=== PATIENT | male | born 1965 | race Caucasian/White ===

== ENCOUNTER 2017-10-15 16:38 | Emergency (ER) | payer OTHER ==
[2017-10-15] MEDS ORDERED: Sodium Chloride 0.9% 1,000 ML IV ONE (16:49)
--- NOTE | 2017-10-15 16:50 | EDM.PDOC ---
ED HPI GENERAL MEDICAL PROBLEM - General Chief Complaint: Skin Complaint Stated Complaint: PT HURT LT RIGHT BIG TOE Time Seen by Provider: 10/15/17 16:45 Source of Information: Reports: Patient History Limitations: Reports: No Limitations - History of Present Illness INITIAL COMMENTS - FREE TEXT/NARRATIVE: HISTORY AND PHYSICAL: History of present illness: Patient is a 52-year-old male who presents to the emergency room with a infected left great toe. He states approximately 4 days ago he noted some area of redness, which has progressively gotten worse. Today there is minimal amount of yellow/green drainage noted on his sock and a foul odor coming from the toe. He does have a history of diabetes with. He states he's been wearing rubber boots which have been wet inside. He reports that when he gets home he takes his boots off, dries his feet and keeps them open to air and elevated. C/o chills and sweats x 3 days. Review of systems: As per history of present illness and below otherwise all systems reviewed and negative. Past medical history: As per history of present illness and as reviewed below otherwise noncontributory. Surgical history: As per history of present illness and as reviewed below otherwise noncontributory. Social history: No reported history of drug or alcohol abuse. Family history: As per history of present illness and as reviewed below otherwise noncontributory. Physical exam: General: Well-developed and well-nourished 52-year-old male. Alert and oriented. Nontoxic appearing and in no acute distress. HEENT: Atraumatic, normocephalic, pupils equal and reactive bilaterally, negative for conjunctival pallor or scleral icterus, mucous membranes moist, throat clear, neck supple, nontender, trachea midline. No drooling or trismus noted. No meningeal signs Lungs: Clear to auscultation, breath sounds equal bilaterally, chest nontender. Heart: S1S2, regular rate and rhythm without overt murmur Abdomen: Soft, nondistended, nontender. Negative for masses or hepatosplenomegaly. Negative for costovertebral tenderness. Pelvis: Stable nontender. Genitourinary: Deferred. Rectal: Deferred. Skin: Left great toe has a large area of macerated skin localized area (approx 2.5 cm diameter) area of nacrotic appearing tissue towards the outer portion of the toe. Yellow/green drainage noted, errythema at the base of toe ( circumferential). Foul odor noted from the wound. Otherwise skin is intact, warm , dry. No lesions or rashes noted. Extremities: Atraumatic, negative for cords or calf pain. Neurovascular unremarkable. Neuro: Awake, alert, oriented. Cranial nerves II through XII unremarkable. Cerebellum unremarkable. Motor and sensory unremarkable throughout. Exam nonfocal. Notes: Temperature is 102.4, Current blood sugar 196. Labs, x-ray and medications will be given. Dr Wlaker was involved in this case. Feel it is in the patients best interest to be transfered to [place] for further management and possible debridment. He will likely need multiple specialties involved in his care. Patient is agreeable to transfer. 1715: Dr Young (ER ) at [facility] in [place] is agreeable to taking this patient. Diagnostics: CBC, CMP, lactic acid, blood culture 2, x-ray Therapeutics: IV fluid, Tylenol, and Vancomycin Impression: Diabetic Foot Ulcer with Cellulitis Plan: Transferred to [facility] via ground EMS Definitive disposition and diagnosis as appropriate pending reevaluation and review of above. Duration: Day(s): left great toe Pain Score (Numeric/FACES): 6 - Related Data Allergies Allergy/AdvReac Type Severity Reaction Status Date / Time No Known Allergies Allergy Verified 10/15/17 16:45 Home Meds: Home Meds Aspirin [Low Dose Aspirin EC] 81 mg PO DAILY 10/15/17 [History] Fish Oil/[place]-3 Fatty Acids [Fish Oil] 1,000 mg PO DAILY 10/15/17 [History] Lisinopril [Zestril] 5 mg PO DAILY 10/15/17 [History] Multivitamin [Multi-Vitamin Daily] 1 each PO DAILY 10/15/17 [History] Simvastatin [Zocor] 1 tab PO DAILY 10/15/17 [History] metFORMIN HCl [Metformin HCl] 500 mg PO DAILY 10/15/17 [History] ED ROS GENERAL - Review of Systems Review Of Systems: ROS reveals no pertinent complaints other than HPI. ED EXAM, SKIN/RASH Exam: See Below (See dictation) Course - Vital Signs Last Recorded V/S: Last Vital Signs Temp 102.9 F H 10/15/17 16:48 Pulse 107 H 10/15/17 16:48 Resp 20 10/15/17 16:48 BP 133/91 H 10/15/17 16:48 Pulse Ox 98 10/15/17 16:48 - Orders/Labs/Meds Orders: Active Orders 24 hr Category Date Time Status Toes Great Toe Lt TA [CR] Stat Exams 10/15/17 16:50 Taken CULTURE BLOOD [BC] Stat Lab 10/15/17 16:53 Received CULTURE BLOOD [BC] Stat Lab 10/15/17 16:58 Received CULTURE WOUND [RM] Stat Lab 10/15/17 17:02 Received Sodium Chloride 0.9% [Normal Saline] 1,000 ml Med 10/15/17 16:49 Active IV STAT Vancomycin [Vancocin] 1 gm Med 10/15/17 17:00 Active Sodium Chloride 0.9% [Normal Saline] 250 ml IV ONETIME Blood Culture x2 Reflex Set [OM.PC] Stat Oth 10/15/17 16:49 Ordered Medication Orders Sodium Chloride (Normal Saline) 1,000 mls @ 999 mls/hr IV STAT ONE Stop: 10/15/17 17:49 Last Admin: 10/15/17 17:31 Dose: 999 mls/hr Vancomycin HCl 1 gm/ Sodium (Chloride) 250 mls @ 250 mls/hr IV ONETIME ONE Stop: 10/15/17 17:59 Last Admin: 10/15/17 17:38 Dose: 250 mls/hr Labs: Laboratory Tests 10/15/17 10/15/17 10/15/17 Range/Units 16:47 16:53 16:53 WBC 8.88 (4.0-11.0) K/uL RBC 4.42 L (4.50-5.90) M/uL Hgb 13.9 (13.0-17.0) g/dL Hct 38.3 (38.0-50.0) % MCV 86.7 (80.0-98.0) fL MCH 31.4 (27.0-32.0) pg MCHC 36.3 (31.0-37.0) g/dL RDW Std Deviation 40.2 (28.0-62.0) fl RDW Coeff of Sapna 13 (11.0-15.0) % Plt Count 185 (150-400) K/uL MPV 8.90 (7.40-12.00) fL Neut % (Auto) 76.0 (48.0-80.0) % Lymph % (Auto) 13.7 L (16.0-40.0) % [place] % (Auto) 9.5 (0.0-15.0) % Eos % (Auto) 0.6 (0.0-7.0) % Baso % (Auto) 0.2 (0.0-1.5) % Neut # (Auto) 6.8 H (1.4-5.7) K/uL Lymph # (Auto) 1.2 (0.6-2.4) K/uL [place] # (Auto) 0.8 (0.0-0.8) K/uL Eos # (Auto) 0.1 (0.0-0.7) K/uL Baso # (Auto) 0.0 (0.0-0.1) K/uL Nucleated RBC % 0.0 /100WBC Nucleated RBCs # 0 K/uL Lactate (0.20-2.00) mmol/L Sodium 132 L (136-148) mmol/L Potassium 4.2 (3.5-5.1) mmol/L Chloride 98 (98-107) mmol/L Carbon Dioxide 23.0 (21.0-32.0) mmol/L BUN 11 (7.0-18.0) mg/dL Creatinine 1.1 (0.8-1.3) mg/dL Est Cr Clr Drug Dosing 87.20 mL/min Estimated GFR (MDRD) > 60.0 ml/min Glucose 218 H (74-106) mg/dL POC Glucose 196 H (60-110) mg/dL Calcium 9.1 (8.5-10.1) mg/dL Total Bilirubin 0.6 (0.2-1.0) mg/dL AST 23 (15-37) IU/L ALT 37 (14-63) IU/L Alkaline Phosphatase 125 H (46-116) U/L Total Protein 8.3 H (6.4-8.2) g/dL Albumin 3.5 (3.4-5.0) g/dL Globulin 4.8 H (2.0-3.5) g/dL Albumin/Globulin Ratio 0.7 L (1.3-2.8) 10/15/17 Range/Units 16:58 WBC (4.0-11.0) K/uL RBC (4.50-5.90) M/uL Hgb (13.0-17.0) g/dL Hct (38.0-50.0) % MCV (80.0-98.0) fL MCH (27.0-32.0) pg MCHC (31.0-37.0) g/dL RDW Std Deviation (28.0-62.0) fl RDW Coeff of Sapna (11.0-15.0) % Plt Count (150-400) K/uL MPV (7.40-12.00) fL Neut % (Auto) (48.0-80.0) % Lymph % (Auto) (16.0-40.0) % [place] % (Auto) (0.0-15.0) % Eos % (Auto) (0.0-7.0) % Baso % (Auto) (0.0-1.5) % Neut # (Auto) (1.4-5.7) K/uL Lymph # (Auto) (0.6-2.4) K/uL [place] # (Auto) (0.0-0.8) K/uL Eos # (Auto) (0.0-0.7) K/uL Baso # (Auto) (0.0-0.1) K/uL Nucleated RBC % /100WBC Nucleated RBCs # K/uL Lactate 1.7 (0.20-2.00) mmol/L Sodium (136-148) mmol/L Potassium (3.5-5.1) mmol/L Chloride (98-107) mmol/L Carbon Dioxide (21.0-32.0) mmol/L BUN (7.0-18.0) mg/dL Creatinine (0.8-1.3) mg/dL Est Cr Clr Drug Dosing mL/min Estimated GFR (MDRD) ml/min Glucose (74-106) mg/dL POC Glucose (60-110) mg/dL Calcium (8.5-10.1) mg/dL Total Bilirubin (0.2-1.0) mg/dL AST (15-37) IU/L ALT (14-63) IU/L Alkaline Phosphatase (46-116) U/L Total Protein (6.4-8.2) g/dL Albumin (3.4-5.0) g/dL Globulin (2.0-3.5) g/dL Albumin/Globulin Ratio (1.3-2.8) Meds: Medications Generic Name Dose Route Start Last Admin Trade Name Freq PRN Reason Stop Dose Admin Sodium Chloride 1,000 mls @ 999 mls/hr 10/15/17 16:49 10/15/17 17:46 Normal Saline IV 10/15/17 17:49 200 mls/hr STAT ONE Infusion Vancomycin HCl 1 gm/ Sodium 250 mls @ 250 mls/hr 10/15/17 17:00 10/15/17 17: 38 Chloride IV 10/15/17 17:59 250 mls/hr ONETIME ONE Administration Discontinued Medications Generic Name Dose Route Start Last Admin Trade Name Freq PRN Reason Stop Dose Admin Ketorolac Tromethamine 30 mg 10/15/17 17:00 10/15/17 17:35 Toradol IVPUSH 10/15/17 17:01 30 mg ONETIME ONE Administration Ondansetron HCl 4 mg 10/15/17 17:00 10/15/17 17:32 Zofran IVPUSH 10/15/17 17:01 4 mg ONETIME ONE Administration Departure - Departure Time of Disposition: 17:47 Disposition: Home, Self-Care 01 Clinical Impression: Diabetic ulcer of toe Qualifiers: Diabetes mellitus type: type 2 Laterality: left Non-pressure ulcer stage: unspecified non-pressure ulcer stage Qualified Code(s): E11.621 - Type 2 diabetes mellitus with foot ulcer; L97.529 - Non-pressure chronic ulcer of other part of left foot with unspecified severity Cellulitis Qualifiers: Site of cellulitis: extremity Site of cellulitis of extremity: toe Laterality: left Qualified Code(s): L03.032 - Cellulitis of left toe - Discharge Information Referrals: PCP,None [Primary Care Provider] - Forms: ED Department Discharge - My Orders Last 24 Hours: My Active Orders 10/15/17 16:49 Sodium Chloride 0.9% [Normal Saline] 1,000 ml IV STAT Blood Culture x2 Reflex Set [OM.PC] Stat 10/15/17 16:50 Toes Great Toe Lt TA [CR] Stat 10/15/17 16:53 CULTURE BLOOD [BC] Stat 10/15/17 16:58 CULTURE BLOOD [BC] Stat 10/15/17 17:00 Vancomycin [Vancocin] 1 gm Sodium Chloride 0.9% [Normal Saline] 250 ml IV ONETIME 10/15/17 17:02 CULTURE WOUND [RM] Stat - Assessment/Plan Last 24 Hours: My Active Orders 10/15/17 16:49 Sodium Chloride 0.9% [Normal Saline] 1,000 ml IV STAT Blood Culture x2 Reflex Set [OM.PC] Stat 10/15/17 16:50 Toes Great Toe Lt TA [CR] Stat 10/15/17 16:53 CULTURE BLOOD [BC] Stat 10/15/17 16:58 CULTURE BLOOD [BC] Stat 10/15/17 17:00 Vancomycin [Vancocin] 1 gm Sodium Chloride 0.9% [Normal Saline] 250 ml IV ONETIME 10/15/17 17:02 CULTURE WOUND [RM] Stat
[2017-10-15] MEDS ORDERED: Ondansetron 4 MG/2 ML SDV IVPUSH ONE (17:00)
[2017-10-15] MEDS ORDERED: Ketorolac 30 MG/ML SDV IVPUSH ONE (17:00)
[2017-10-15 17:37] LABS: CHLORIDE,CL 98 mmol/L (98-107); SODIUM,NA 132 mmol/L (136-148)
--- NOTE | 2017-10-16 13:48 | CR ---
EXAM DATE: 10/15/17 PATIENT'S AGE: 52 Patient: KRYSTYNA HARE Facility: [place], [place] Site . Site : [id number] Study: XRay Extremity Left 1st toe [id number]/15/2018 5:35:09 PM Ordering Physician: Doctor Rainey Final Report: Great toe infection since Monday 3 views of the left toe Findings: There is soft tissue defect. Soft tissue gas and soft tissue swelling adjacent to the 1st distal phalanx. There is normal alignment. No underlying osseous abnormalities. No Erosive change or bony destructive change. Dictated by Radha Espitia MD @ Oct 15 2017 5:49PM (Electronic Signature) Report Signed by Proxy. LILLY
== END 2017-10-15 18:15 ==
LOC: MW.ED 16:38
DX: E11.621 Type 2 diabetes mellitus with foot ulcer (principal); L97.529 Non-pressure chronic ulcer of other part of left foot with unspecified severity; L03.032 Cellulitis of left toe; Z79.82 Long term (current) use of aspirin; Z79.899 Other long term (current) drug therapy; Z79.84 Long term (current) use of oral hypoglycemic drugs
CPT/HCPCS: 36415; 73660; 80053; 82962; 83605; 85025; 87040; 87070; 96365; 96375; 99285; J1885; J2405; J3370; J7040; J7050; 87186; 99284

== ENCOUNTER 2020-11-30 03:45 | Emergency (ER) | payer SELFPAY ==
[2020-11-30] MEDS ORDERED: Ketorolac 15 MG/ML SDV IVPUSH ONE (04:01)
[2020-11-30] MEDS ORDERED: Sodium Chloride 0.9% 1,000 ML IV ONE (04:01)
--- NOTE | 2020-11-30 04:04 | EDM.PDOC ---
ED HPI GENERAL MEDICAL PROBLEM - General Chief Complaint: Genitourinary Problem Stated Complaint: BACK PAIN Time Seen by Provider: 11/30/20 04:02 Source of Information: Reports: Patient History Limitations: Reports: No Limitations - History of Present Illness INITIAL COMMENTS - FREE TEXT/NARRATIVE: Patient is a 55-year-old male presents today for left-sided flank pain. Patient 's pain started about 3 or 4 hours ago has been intense moved down to his groin. Patient states that he has been drinking fluids but not being urinate. Patient denies any nausea vomiting fever chills. Patient has pain similar to before the passing a kidney stone. - Related Data Allergies Allergy/AdvReac Type Severity Reaction Status Date / Time No Known Allergies Allergy Verified 11/30/20 04:03 Home Meds: Home Meds Aspirin [Low Dose Aspirin EC] 81 mg PO DAILY 10/15/17 [History] Fish Oil/[place]-3 Fatty Acids [Fish Oil] 1,000 mg PO DAILY 10/15/17 [History] Multivitamin [Multi-Vitamin Daily] 1 each PO DAILY 10/15/17 [History] Simvastatin [Zocor] 1 tab PO DAILY 10/15/17 [History] lisinopriL [Zestril] 5 mg PO DAILY 10/15/17 [History] metFORMIN HCl [Metformin HCl] 500 mg PO DAILY 10/15/17 [History] Past Medical History Cardiovascular History: Reports: Hypertension Musculoskeletal History: Reports: Gout Endocrine/Metabolic History: Reports: Diabetes, Type II - Infectious Disease History Infectious Disease History: Reports: Chicken Pox - Past Surgical History Cardiovascular Surgical History: Reports: Other (See Below) Other Cardiovascular Surgeries/Procedures: heart cath at 31 Social & Family History - Family History Family Medical History: No Pertinent Family History - Caffeine Use Caffeine Use: Reports: Soda ED ROS GENERAL - Review of Systems Review Of Systems: See Below Constitutional: Reports: No Symptoms HEENT: Reports: No Symptoms Respiratory: Reports: No Symptoms Cardiovascular: Reports: No Symptoms Endocrine: Reports: No Symptoms GI/Abdominal: Reports: Other : Reports: No Symptoms Musculoskeletal: Reports: No Symptoms Skin: Reports: No Symptoms Neurological: Reports: No Symptoms Psychiatric: Reports: No Symptoms Hematologic/Lymphatic: Reports: No Symptoms Immunologic: Reports: No Symptoms ED EXAM, RENAL/ - Physical Exam Exam: See Below Exam Limited By: No Limitations General Appearance: Alert, WD/WN, No Apparent Distress Respiratory/Chest: No Respiratory Distress, Lungs Clear Cardiovascular: Normal Peripheral Pulses, Regular Rate, Rhythm GI/Abdominal: Normal Bowel Sounds, Soft, Non-Tender Back Exam: CVA Tenderness (L) Neurological: Alert, Oriented Course - Vital Signs Last Recorded V/S: Last Vital Signs Temp 97.3 F 11/30/20 06:17 Pulse 73 11/30/20 06:17 Resp 15 11/30/20 06:17 BP 124/80 11/30/20 06:17 Pulse Ox 97 11/30/20 06:17 - Orders/Labs/Meds Orders: Active Orders 24 hr Category Date Time Status UA W/GHAZAL RFLX IF INDICATED [URIN] Stat Lab 11/30/20 06:20 Received Labs: Laboratory Tests 11/30/20 11/30/20 11/30/20 Range/Units 04:40 04:40 06:20 WBC 11.74 H (4.0-11.0) K/uL RBC 4.41 L (4.50-5.90) M/uL Hgb 14.3 (13.0-17.0) g/dL Hct 39.1 (38.0-50.0) % MCV 88.7 (80.0-98.0) fL MCH 32.4 H (27.0-32.0) pg MCHC 36.6 (31.0-37.0) g/dL RDW Std Deviation 42.1 (28.0-62.0) fl RDW Coeff of Sapna 13 (11.0-15.0) % Plt Count 150 (150-400) K/uL MPV 9.60 (7.40-12.00) fL Neut % (Auto) 82.8 H (48.0-80.0) % Lymph % (Auto) 12.5 L (16.0-40.0) % [place] % (Auto) 4.3 (0.0-15.0) % Eos % (Auto) 0.2 (0.0-7.0) % Baso % (Auto) 0.2 (0.0-1.5) % Neut # (Auto) 9.7 H (1.4-5.7) K/uL Lymph # (Auto) 1.5 (0.6-2.4) K/uL [place] # (Auto) 0.5 (0.0-0.8) K/uL Eos # (Auto) 0.0 (0.0-0.7) K/uL Baso # (Auto) 0.0 (0.0-0.1) K/uL Nucleated RBC % 0.0 /100WBC Nucleated RBCs # 0 K/uL Sodium 135 L (136-148) mmol/L Potassium 4.2 (3.5-5.1) mmol/L Chloride 101 (98-107) mmol/L Carbon Dioxide 21.4 (21.0-32.0) mmol/L BUN 17 (7.0-18.0) mg/dL Creatinine 1.4 H (0.8-1.3) mg/dL Est Cr Clr Drug Dosing TNP Estimated GFR (MDRD) 52.8 ml/min Glucose 311 H (74-106) mg/dL Calcium 8.8 (8.5-10.1) mg/dL Urine Color YELLOW Urine Appearance SLT CLOUDY Urine pH 6.0 (5.0-8.0) Ur Specific [place] 1.015 (1.001-1.035) Urine Protein NEGATIVE (NEGATIVE) mg/dL Urine Glucose (UA) >=1000 (NEGATIVE) mg/dL Urine Ketones 15 H (NEGATIVE) mg/dL Urine Occult Blood LARGE H (NEGATIVE) Urine Nitrite NEGATIVE (NEGATIVE) Urine Bilirubin NEGATIVE (NEGATIVE) Urine Urobilinogen 0.2 (<2.0) EU/dL Ur Leukocyte Esterase NEGATIVE (NEGATIVE) Meds: Medications Discontinued Medications Generic Name Dose Route Start Last Admin Trade Name Freq PRN Reason Stop Dose Admin Sodium Chloride 1,000 mls @ 999 mls/hr 11/30/20 04:01 11/30/20 04:36 Normal Saline IV 11/30/20 05:01 999 mls/hr .BOLUS ONE Administration Ketorolac Tromethamine 15 mg 11/30/20 04:01 11/30/20 04:36 Ketorolac 15 Mg/Ml Sdv IVPUSH 11/30/20 04:02 15 mg ONETIME ONE Administration Ondansetron HCl 4 mg 11/30/20 04:23 11/30/20 04:36 Ondansetron 4 Mg/2 Ml Sdv IVPUSH 11/30/20 04:24 4 mg ONETIME ONE Administration - Re-Assessments/Exams Free Text/Narrative Re-Assessment/Exam: 11/30/20 06:32 Pt pain is resolved. Patient CT shows some hydro but no obstructing stone. Stone likely passed. Departure - Departure Time of Disposition: 06:32 Disposition: Home, Self-Care 01 Condition: Good Clinical Impression: Kidney stone - Discharge Information *PRESCRIPTION DRUG MONITORING PROGRAM REVIEWED*: Not Applicable *COPY OF PRESCRIPTION DRUG MONITORING REPORT IN PATIENT ALLY: Not Applicable Instructions: Kidney Stones, [id number] Referrals: Trey Anderson MD [Primary Care Provider] - Forms: ED Department Discharge Care Plan Goals: The following information is given to patients seen in the emergency department who are being discharged to home. This information is to outline your options for follow-up care. We provide all patients seen in our emergency department with a follow-up referral. The need for follow-up, as well as the timing and circumstances, are variable depending upon the specifics of your emergency department visit. If you don't have a primary care physician on staff, we will provide you with a referral. We always advise you to contact your personal physician following an emergency department visit to inform them of the circumstance of the visit and for follow-up with them and/or the need for any referrals to a consulting specialist. The emergency department will also refer you to a specialist when appropriate. This referral assures that you have the opportunity for follow-up care with a specialist. All of these measure are taken in an effort to provide you with optimal care, which includes your follow-up. Under all circumstances we always encourage you to contact your private physician who remains a resource for coordinating your care. When calling for follow-up care, please make the office aware that this follow-up is from your recent emergency room visit. If for any reason you are refused follow-up, please contact the [facility] Emergency Department at and asked to speak to the emergency department charge nurse. Please follow up with your primary care physician. If you do not have a primary care physician, see below: [facility] [address] [place] [address] [facility] [address] [place] [address] [facility] [address] [place] [address] You were seen today for pain in the left side. You likely had a kidney stone that is passed. You CAT scan showed some dilation of the kidney likely from the stone but stone is not present. Please follow-up with urology number above you can call make an appointment. If you have any increased pain fever chills nausea vomiting please return to ED. Sepsis Event Note (ED) - Focused Exam Vital Signs: Vital Signs Temp Pulse Resp BP Pulse Ox 11/30/20 06:17 97.3 F 73 15 124/80 97 11/30/20 04:00 96.3 F L 68 24 H 161/82 H 100 - My Orders Last 24 Hours: My Active Orders 11/30/20 06:20 UA W/GHAZAL RFLX IF INDICATED [URIN] Stat - Assessment/Plan Last 24 Hours: My Active Orders 11/30/20 06:20 UA W/GHAZAL RFLX IF INDICATED [URIN] Stat Plan: Is a 55-year-old male who presents today for left-sided flank pain. Patient passes a kidney stone will obtain labs UA give IV fluids and CT abdomen pelvis.
[2020-11-30] MEDS ORDERED: Ondansetron 4 MG/2 ML SDV IVPUSH ONE (04:23)
[2020-11-30 04:54] LABS: BLOOD UREA NITROGEN,BUN 17 mg/dL (7.0-18.0); CARBON DIOXIDE,CO2 21.4 mmol/L (21.0-32.0); CHLORIDE,CL 101 mmol/L (98-107); GLUCOSE RANDOM 311 mg/dL (74-106); POTASSIUM,K 4.2 mmol/L (3.5-5.1); SODIUM,NA 135 mmol/L (136-148)
--- NOTE | 2020-11-30 06:31 | CT ---
INDICATION: Possible kidney stone. Left-sided back pain. COMPARISON: None available TECHNIQUE: CT examination of the abdomen and pelvis was performed without contrast enhancement using 2.5 mm thick axial sections from the lung bases through the pubic symphysis. Oral contrast was not administered. Please note that all CT scans at this facility use dose modulation, iterative reconstruction, and/or weight-based dosing when appropriate to reduce radiation dose to as low as reasonably achievable. FINDINGS: In the abdomen, the unenhanced liver, spleen, pancreas, and adrenals are normal in appearance. There is mild left hydronephrosis and proximal hydroureter extending to the mid L3 level, without any definite obstructing calculus or mass. The dilatation may be the residua from recent passage of a calculus. There is no sign of any renal or ureteral calculi on either side. There is no sign of hydronephrosis or hydroureter on the right. The gallbladder is normal in appearance. The abdominal aorta is normal in caliber with no sign of dilatation. There is no sign of retroperitoneal mass or adenopathy. The stomach, loops of small bowel, and colon in the abdomen are normal in appearance. In the pelvis, the appendix is normal in appearance with no sign of inflammatory process. There is moderate sigmoid diverticulosis without evidence of diverticulitis. The loops of small bowel and colon in the pelvis are otherwise normal in appearance. The prostate is mildly enlarged and is otherwise normal in appearance. The urinary bladder is normal in appearance. There is no sign of pelvic or inguinal mass or adenopathy. There is no sign of free air or free fluid in the abdomen or pelvis. The lung bases are clear. The osseous structures are normal in appearance for the patient`s age. IMPRESSION: CT of the abdomen shows mild left hydronephrosis and proximal left hydroureter extending to the mid L3 level, without obstructing calculus or mass. No sign of any renal or ureteral calculi on either side. CT of the pelvis shows moderate sigmoid diverticulosis with no sign of diverticulitis. Mild enlargement of the prostate. Please note that all CT scans at this facility use dose modulation, iterative reconstruction, and/or weight-based dosing when appropriate to reduce radiation dose to as low as reasonably achievable. Dictated by Dameon Kevin MD @ 11/30/2020 6:30:[address] Dameon Kevin @ Nov 30 2020 6:30AM
== END 2020-11-30 06:39 | disposition home or self-care (01) ==
LOC: MW.ED 03:45
DX: N13.2 Hydronephrosis with renal and ureteral calculous obstruction (principal); I10 Essential (primary) hypertension; M10.9 Gout, unspecified; E11.9 Type 2 diabetes mellitus without complications; Z79.84 Long term (current) use of oral hypoglycemic drugs; Z79.82 Long term (current) use of aspirin
CPT/HCPCS: 36415; 74176; 80048; 81001; 85025; 96374; 96375; 99284; J1885; J2405; J7030

== ENCOUNTER 2020-11-30 09:24 | Emergency (ER) | payer SELFPAY ==
--- NOTE | 2020-11-30 09:28 | EDM.PDOC ---
ED HPI GENERAL MEDICAL PROBLEM - General Stated Complaint: KIDNEY STONES Time Seen by Provider: 11/30/20 09:27 Source of Information: Reports: Patient History Limitations: Reports: No Limitations - History of Present Illness INITIAL COMMENTS - FREE TEXT/NARRATIVE: 55M PMHx renal stones presents with L flank pain. Of note patient was discharged from ER roughly 3 hours ago for similar complaints. At that time he was found to have hematuria and CT imaging of the abdomen and pelvis revealed left hydronephrosis/hydroureter without renal calculi identified. It was presumed that the patient has passed a kidney stone based on h/o renal stones and no stone identified on CT imaging. Patient notes that he was feeling better after he left the emergency department but roughly an hour prior to arrival he began to experience similar left-sided flank pain radiating to the left lower quadrant abdomen and groin. He notes this time he is having less difficulty with urination, has not noted overt hematuria. Has some nausea but no vomiting. Feels like prior episodes of kidney stone still. Left Flank Pain Score (Numeric/FACES): 7 - Related Data Allergies Allergy/AdvReac Type Severity Reaction Status Date / Time No Known Allergies Allergy Verified 11/30/20 09:35 Home Meds: Home Meds Aspirin [Low Dose Aspirin EC] 81 mg PO DAILY 10/15/17 [History] Fish Oil/[place]-3 Fatty Acids [Fish Oil] 1,000 mg PO DAILY 10/15/17 [History] Multivitamin [Multi-Vitamin Daily] 1 each PO DAILY 10/15/17 [History] Simvastatin [Zocor] 1 tab PO DAILY 10/15/17 [History] lisinopriL [Zestril] 5 mg PO DAILY 10/15/17 [History] metFORMIN HCl [Metformin HCl] 500 mg PO DAILY 10/15/17 [History] Past Medical History Cardiovascular History: Reports: CAD, High Cholesterol, Hypertension Other Genitourinary History: kidney stones Musculoskeletal History: Reports: Gout Endocrine/Metabolic History: Reports: Diabetes, Type II - Infectious Disease History Infectious Disease History: Reports: Chicken Pox - Past Surgical History Cardiovascular Surgical History: Reports: Other (See Below) Other Cardiovascular Surgeries/Procedures: heart cath at 31 Social & Family History - Family History Family Medical History: No Pertinent Family History - Caffeine Use Caffeine Use: Reports: Soda ED ROS GENERAL - Review of Systems Review Of Systems: Comprehensive ROS is negative, except as noted in HPI. ED EXAM, GENERAL - Physical Exam Exam: See Below Exam Limited By: No Limitations General Appearance: Alert, WD/WN, No Apparent Distress Throat/Mouth: Normal Voice, No Airway Compromise Head: Atraumatic, Normocephalic Neck: Normal Inspection Respiratory/Chest: No Respiratory Distress, Lungs Clear, Normal Breath Sounds, No Accessory Muscle Use Cardiovascular: Normal Peripheral Pulses, Regular Rate, Rhythm GI/Abdominal: Soft, Non-Tender Extremities: Normal Inspection Neurological: Alert, Normal Cognition, Normal Gait Psychiatric: Normal Affect, Normal Mood Skin Exam: Warm, Dry, Intact, Normal Color Course - Vital Signs Last Recorded V/S: Last Vital Signs Temp 97.7 F 11/30/20 12:17 Pulse 70 11/30/20 12:17 Resp 18 11/30/20 12:17 BP 117/64 11/30/20 12:17 Pulse Ox 97 11/30/20 12:17 - Orders/Labs/Meds Orders: Active Orders 24 hr Category Date Time Status Sodium Chloride 0.9% [Saline Flush] Med 11/30/20 09:38 Active 10 ml FLUSH ASDIRECTED PRN Sodium Chloride 0.9% [Saline Flush] Med 11/30/20 09:38 Active 2.5 ml FLUSH ASDIRECTED PRN Saline Lock Insert [OM.PC] Stat Oth 11/30/20 09:39 Ordered Medication Orders Sodium Chloride (Sodium Chloride 0.9% 10 Ml Syringe) 10 ml FLUSH ASDIRECTED PRN PRN Reason: Keep Vein Open Last Admin: 11/30/20 09:48 Dose: 10 ml Documented by: [id number] Sodium Chloride (Sodium Chloride 0.9% 2.5 Ml Syringe) 2.5 ml FLUSH ASDIRECTED PRN PRN Reason: Keep Vein Open Last Admin: 11/30/20 09:48 Dose: 2.5 ml Documented by: [id number] Labs: Laboratory Tests 11/30/20 11/30/20 11/30/20 Range/Units 09:45 09:45 09:45 WBC 11.16 H (4.0-11.0) K/uL RBC 4.31 L (4.50-5.90) M/uL Hgb 13.7 (13.0-17.0) g/dL Hct 38.5 (38.0-50.0) % MCV 89.3 (80.0-98.0) fL MCH 31.8 (27.0-32.0) pg MCHC 35.6 (31.0-37.0) g/dL RDW Std Deviation 43.2 (28.0-62.0) fl RDW Coeff of Sapna 13 (11.0-15.0) % Plt Count 152 (150-400) K/uL MPV 9.40 (7.40-12.00) fL Neut % (Auto) 85.8 H (48.0-80.0) % Lymph % (Auto) 9.6 L (16.0-40.0) % [place] % (Auto) 4.4 (0.0-15.0) % Eos % (Auto) 0.0 (0.0-7.0) % Baso % (Auto) 0.2 (0.0-1.5) % Neut # (Auto) 9.6 H (1.4-5.7) K/uL Lymph # (Auto) 1.1 (0.6-2.4) K/uL [place] # (Auto) 0.5 (0.0-0.8) K/uL Eos # (Auto) 0.0 (0.0-0.7) K/uL Baso # (Auto) 0.0 (0.0-0.1) K/uL Nucleated RBC % 0.0 /100WBC Nucleated RBCs # 0 K/uL Sodium 135 L (136-148) mmol/L Potassium 4.9 (3.5-5.1) mmol/L Chloride 102 (98-107) mmol/L Carbon Dioxide 23.1 (21.0-32.0) mmol/L BUN 18 (7.0-18.0) mg/dL Creatinine 1.6 H (0.8-1.3) mg/dL Est Cr Clr Drug Dosing 57.93 mL/min Estimated GFR (MDRD) 45.3 ml/min Glucose 331 H (74-106) mg/dL Calcium 8.3 L (8.5-10.1) mg/dL Total Bilirubin 0.7 (0.2-1.0) mg/dL AST 24 (15-37) IU/L ALT 30 (14-63) IU/L Alkaline Phosphatase 88 (46-116) U/L Total Protein 7.2 (6.4-8.2) g/dL Albumin 3.6 (3.4-5.0) g/dL Globulin 3.6 (2.6-4.0) g/dL Albumin/Globulin Ratio 1.0 (0.9-1.6) Urine Color YELLOW Urine Appearance CLEAR Urine pH 5.5 (5.0-8.0) Ur Specific [place] 1.025 (1.001-1.035) Urine Protein NEGATIVE (NEGATIVE) mg/dL Urine Glucose (UA) >=1000 (NEGATIVE) mg/dL Urine Ketones NEGATIVE (NEGATIVE) mg/dL Urine Occult Blood LARGE H (NEGATIVE) Urine Nitrite NEGATIVE (NEGATIVE) Urine Bilirubin NEGATIVE (NEGATIVE) Urine Urobilinogen 0.2 (<2.0) EU/dL Ur Leukocyte Esterase NEGATIVE (NEGATIVE) Urine RBC 15-20 (0-2/HPF) Urine WBC 0-2 (0-5/HPF) Ur Epithelial Cells RARE (NONE-FEW) Urine Bacteria RARE (NEGATIVE) Meds: Medications Generic Name Dose Route Start Last Admin Trade Name Janeth PRN Reason Stop Dose Admin Sodium Chloride 10 ml 11/30/20 09:38 11/30/20 09:48 Sodium Chloride 0.9% 10 Ml Syringe FLUSH 10 ml ASDIRECTED PRN Administration Keep Vein Open Sodium Chloride 2.5 ml 11/30/20 09:38 11/30/20 09:48 Sodium Chloride 0.9% 2.5 Ml Syringe FLUSH 2.5 ml ASDIRECTED PRN Administration Keep Vein Open Discontinued Medications Generic Name Dose Route Start Last Admin Trade Name Ferq PRN Reason Stop Dose Admin Hydromorphone HCl 1 mg 11/30/20 10:38 11/30/20 10:53 Hydromorphone 1 Mg/Ml Syringe IVPUSH 11/30/20 10:39 1 mg ONETIME ONE Administration Sodium Chloride 1,000 mls @ 999 mls/hr 11/30/20 09:38 11/30/20 09:48 Normal Saline IV 11/30/20 10:38 999 mls/hr .Bolus ONE Administration Iopamidol 100 ml 11/30/20 11:38 11/30/20 11:39 Iopamidol 755 Mg/Ml 500 Ml Multipack Bottle IVPUSH 11/30/20 11:39 100 ml ONETIME STA Administration Morphine Sulfate 4 mg 11/30/20 09:38 11/30/20 09:48 Morphine 4 Mg/Ml Syringe IVPUSH 11/30/20 09:39 4 mg ONETIME ONE Administration Ondansetron HCl 4 mg 11/30/20 09:38 11/30/20 09:48 Ondansetron 4 Mg/2 Ml Sdv IVPUSH 11/30/20 09:39 4 mg ONETIME ONE Administration - Re-Assessments/Exams Free Text/Narrative Re-Assessment/Exam: 11/30/20 09:41 We will repeat labs and urinalysis. Will consider CT imaging with contrast to ensure no gross abnormalities as the initial scan was noncontrast CT. Will treat pain and nausea and will give 1 L IV fluid bolus. 11/30/20 10:39 Patient's pain was initially improved but now worsening. Will get CT abdomen pelvis with IV contrast. Will give additional analgesia while working up. 11/30/20 12:[address] scan shows evidence of a 2 mm renal stone. Will discharge with Percocet, Motrin, Flomax. As pharmacy is closed for the holiday will use [employer] machine for Percocet and Flomax and recommend patient picking machine operator [id number] Motrin. Departure - Departure Time of Disposition: 12:25 Disposition: Home, Self-Care 01 Condition: Good Clinical Impression: Kidney stone on left side - Discharge Information Instructions: Kidney Stones, [id number] Referrals: Trey Anderson MD [Primary Care Provider] - Additional Instructions: You have a 2 mm renal stone. This is likely to pass on its own. I have sent pain medication as well as Flomax to the machine in the lobby. You also take [id number] Motrin. You should take 600 mg every 6 hours. This is 3 of the [id number]-[id number] tablets every 6 hours. The following information is given to patients seen in the emergency department who are being discharged to home. This information is to outline your options for follow-up care. We provide all patients seen in our emergency department with a follow-up referral. The need for follow-up, as well as the timing and circumstances, are variable depending upon the specifics of your emergency department visit. If you don't have a primary care physician on staff, we will provide you with a referral. We always advise you to contact your personal physician following an emergency department visit to inform them of the circumstance of the visit and for follow-up with them and/or the need for any referrals to a consulting specialist. The emergency department will also refer you to a specialist when appropriate. This referral assures that you have the opportunity for follow-up care with a specialist. All of these measure are taken in an effort to provide you with optimal care, which includes your follow-up. Under all circumstances we always encourage you to contact your private physician who remains a resource for coordinating your care. When calling for follow-up care, please make the office aware that this follow-up is from your recent emergency room visit. If for any reason you are refused follow-up, please contact the [facility] Emergency Department at and asked to speak to the emergency department charge nurse. Please follow up with your primary care physician. If you do not have a primary care physician, see below: [facility] [address] [place] [id number] My [facility] [address] [place] [address] [facility] [address] [place] [id number] Sepsis Event Note (ED) - Focused Exam Vital Signs: Vital Signs Temp Pulse Resp BP Pulse Ox 11/30/20 12:17 97.7 F 70 18 117/64 97 11/30/20 09:35 96.5 F L 75 18 145/82 H 98 - My Orders Last 24 Hours: My Active Orders 11/30/20 09:38 Sodium Chloride 0.9% [Saline Flush] 10 ml FLUSH ASDIRECTED PRN Sodium Chloride 0.9% [Saline Flush] 2.5 ml FLUSH ASDIRECTED PRN 11/30/20 09:39 Saline Lock Insert [OM.PC] Stat - Assessment/Plan Last 24 Hours: My Active Orders 11/30/20 09:38 Sodium Chloride 0.9% [Saline Flush] 10 ml FLUSH ASDIRECTED PRN Sodium Chloride 0.9% [Saline Flush] 2.5 ml FLUSH ASDIRECTED PRN 11/30/20 09:39 Saline Lock Insert [OM.PC] Stat
[2020-11-30] MEDS ORDERED: Sodium Chloride 0.9% 1,000 ML IV ONE (09:38)
[2020-11-30] MEDS ORDERED: Ondansetron 4 MG/2 ML SDV IVPUSH ONE (09:38)
[2020-11-30] MEDS ORDERED: Morphine 4 MG/ML Syringe IVPUSH ONE (09:38)
[2020-11-30] MEDS ORDERED: Sodium Chloride 0.9% 2.5 ML Syringe FLUSH PRN (09:38)
[2020-11-30] MEDS ORDERED: Sodium Chloride 0.9% 10 ML Syringe FLUSH PRN (09:38)
[2020-11-30 10:20] LABS: CARBON DIOXIDE,CO2 23.1 mmol/L (21.0-32.0); POTASSIUM,K 4.9 mmol/L (3.5-5.1)
[2020-11-30] MEDS ORDERED: HYDROmorphone 1 MG/ML Syringe IVPUSH ONE (10:38)
[2020-11-30] MEDS ORDERED: Iopamidol 755 MG/ML 500 ML Multipack Bottle IVPUSH STA (11:38)
--- NOTE | 2020-11-30 12:19 | CT ---
INDICATION: Left flank/left lower quadrant pain. TECHNIQUE: Volumetric helical scanning of the abdomen and pelvis was performed with 100 cc of Isovue 370 contrast material IV. Coronal and sagittal reconstructions were obtained. COMPARISON: Abdomen/pelvis CT performed earlier today. That exam was performed without IV contrast. FINDINGS: Acutely obstructing 2 mm distal left ureteral stone is now clearly evident on images 160 and 161 of series 201. This stone is 2 cm from the ureterovesical junction. It was present at the same site on the previous examination but apparently mistaken for a phlebolith. Mild left hydroureter and hydronephrosis is demonstrated lung with periureteral and perinephric stranding. A mildly delayed left nephrogram is demonstrated. The kidneys are otherwise unremarkable. The bladder is grossly negative. The prostate is unremarkable. The liver, bile ducts, spleen, adrenal glands and pancreas are negative. The bowel is unremarkable except for sigmoid and left colonic diverticulosis. There is no evidence of diverticulitis. No lymphadenopathy or free fluid is demonstrated. The lung bases are clear, and the heart size is normal. Calcified coronary arterial plaque is demonstrated. IMPRESSION: 1. Acutely obstructing 2 mm distal left ureteral stone, 2 cm from the UVJ. 2. Sigmoid and left colonic diverticulosis without evidence of diverticulitis. 3. Coronary artery disease. Please note that all CT scans at this facility use dose modulation, iterative reconstruction, and/or weight-based dosing when appropriate to reduce radiation dose to as low as reasonably achievable. Dictated by Shaan Robbins MD @ 11/30/2020 12:18:[address] Shaan Robbins @ Nov 30 2020 12:18PM
== END 2020-11-30 12:37 | disposition home or self-care (01) ==
LOC: MW.ED 09:24
DX: N13.2 Hydronephrosis with renal and ureteral calculous obstruction (principal); I25.10 Atherosclerotic heart disease of native coronary artery without angina pectoris; E78.00 Pure hypercholesterolemia, unspecified; I10 Essential (primary) hypertension; E11.9 Type 2 diabetes mellitus without complications; Z79.84 Long term (current) use of oral hypoglycemic drugs; Z79.899 Other long term (current) drug therapy
CPT/HCPCS: 36415; 74177; 80053; 81001; 85025; 96374; 96375; 99284; J1170; J2270; J2405; J7030; Q9967

== ENCOUNTER 2022-04-01 13:54 | Emergency (ER) | payer BC ==
[2022-04-01] MEDS ORDERED: Diphtheria,Pertussis(Acell),Tetanus Vaccine 0.5 ML Syringe IM ONE (14:13)
[2022-04-01] MEDS ORDERED: HYDROmorphone 1 MG/ML Syringe IVPUSH ONE ×2 (14:13→15:29)
[2022-04-01] MEDS ORDERED: Ondansetron 4 MG/2 ML SDV IVPUSH ONE (14:14)
[2022-04-01] MEDS ORDERED: Sodium Chloride 0.9% 1,000 ML IV ONE (14:14)
[2022-04-01] MEDS ORDERED: Bacitracin Oint 28.35 GM Tube TOP SCH (22:00)
== END 2022-04-01 17:02 | disposition home or self-care (01) ==
LOC: MW.ED 13:54
DX: S43.005A Unspecified dislocation of left shoulder joint, initial encounter (principal); S02.2XXA Fracture of nasal bones, initial encounter for closed fracture; S00.81XA Abrasion of other part of head, initial encounter; I25.10 Atherosclerotic heart disease of native coronary artery without angina pectoris; I10 Essential (primary) hypertension; E11.9 Type 2 diabetes mellitus without complications; Z79.82 Long term (current) use of aspirin; Z79.899 Other long term (current) drug therapy; Z23 Encounter for immunization; Y04.8XXA Assault by other bodily force, initial encounter
CPT/HCPCS: 23650; 70450; 70486; 71045; 73030; 73130; 90471; 90715; 96361; 96374; 96375; 96376; 99284; J1170; J2405; J7030; 99283

== ENCOUNTER 2023-08-14 11:01 | Emergency (ER) | payer BC ==
[2023-08-14 12:33] LABS: BASOPHILS ABSOLUTE AUTO 0.04 K/uL (0.00-0.20); BASOPHILS PERCENT AUTO 0.2 % (0.0-1.0); EOSINOPHILS ABSOLUTE AUTO 0.01 K/uL (0.00-0.45); EOSINOPHILS PERCENT AUTO 0.1 % (0.0-6.0); HEMATOCRIT 33.6 % (42.0-52.0); HEMOGLOBIN 12.1 g/dL (14.0-18.0); IMMATURE GRAN ABSOLUTE AUTO 0.13 K/uL (0.00-0.05); IMMATURE GRAN PERCENT AUTO 0.8 % (0.0-0.4); LYMPHOCYTES ABSOLUTE AUTO 0.83 K/uL (1.00-4.80); LYMPHOCYTES PERCENT AUTO 4.9 % (24.0-44.0); MEAN CORPUSCULAR HEMOGLOBIN 31.6 pg (28.0-32.0); MEAN CORPUSCULAR VOLUME 87.7 fL (83.0-99.0); MEAN PLATELET VOLUME 10.2 fL (9.4-12.4); MONOCYTES PERCENT AUTO 5.9 % (0.0-8.0); NEUTROPHILS ABSOLUTE AUTO 14.83 K/uL (1.80-7.70); NEUTROPHILS PERCENT AUTO 88.1 % (41.0-71.0); PLATELET COUNT,PLT 212 K/uL (150-400); RED BLOOD CELL COUNT 3.83 M/uL (4.52-5.90); WHITE BLOOD CELL COUNT,WBC 16.84 K/uL (3.9-11.3)
[2023-08-14 12:42] LABS: INR 1.24 (0.86-1.11)
[2023-08-14] MEDS: Piperacillin/Tazobactam 4.5 GM in Sodium Chloride 0.9% 100 ML IV STA (12:47)
[2023-08-14] MEDS: Morphine 4 MG/ML Syringe IVPUSH STA (12:47)
[2023-08-14] MEDS: Sodium Chloride 0.9% 1,000 ML IV ONE (12:47)
[2023-08-14] MEDS: VANCOmycin 2 GM/400 ML 2 GM in Premix Bag 1 BAG IV ONE (12:48)
[2023-08-14] MEDS: Sodium Chloride 0.9% 10 ML Syringe FLUSH PRN (12:48)
[2023-08-14] MEDS: Acetaminophen 500 MG Tab PO STA (12:48)
[2023-08-14] MEDS: Ondansetron 4 MG/2 ML SDV IVPUSH STA (12:48)
[2023-08-14] MEDS: Sodium Chloride 0.9% 2.5 ML Syringe FLUSH PRN (12:48)
[2023-08-14 12:54] LABS: HEMOGLOBIN A1C 6.9 %
[2023-08-14 12:56] LABS: A/G RATIO 0.5 (0.9-1.6); ALBUMIN 2.4 g/dL (3.4-5.0); BILIRUBIN TOTAL 2.3 mg/dL (0.2-1.0); CALCIUM 8.7 mg/dL (8.5-10.1); CARBON DIOXIDE,CO2 19.2 mmol/L (21.0-32.0); CREATININE 1.4 mg/dL (0.8-1.3); EST CRCL DRUG DOSING (CG) 64.67 mL/min; PROTEIN TOTAL,TP 7.7 g/dL (6.4-8.2)
[2023-08-14] MEDS: Sodium Chloride 0.9% 1,000 ML IV STA ×2 (13:21→14:48)
[2023-08-14 13:33] LABS: LACTIC ACID 1.7 mmol/L (0.4-2.0)
== END 2023-08-14 16:35 ==
LOC: MW.ED 11:01
DX: L03.115 Cellulitis of right lower limb (principal); R73.09 Other abnormal glucose; I10 Essential (primary) hypertension; E78.00 Pure hypercholesterolemia, unspecified; I25.10 Atherosclerotic heart disease of native coronary artery without angina pectoris; E11.9 Type 2 diabetes mellitus without complications; Z79.82 Long term (current) use of aspirin; Z79.84 Long term (current) use of oral hypoglycemic drugs; Z79.899 Other long term (current) drug therapy
CPT/HCPCS: 36415; 73610; 73630; 80053; 83036; 83605; 83690; 85025; 85610; 85652; 87040; 87070; 87205; 96365; 96366; 96367; 96375; 99285; A9270; J2270; J2405; J2543; J3370; J3490; J7030; 87154